=== PATIENT | male | born 1950 | race Caucasian/White ===

== ENCOUNTER 2017-06-29 16:18 | Emergency (ER) | payer MEDICARE, OTHER, BC ==
--- NOTE | 2017-06-29 18:25 | EDM.PDOC ---
ED HPI GENERAL MEDICAL PROBLEM - General Chief Complaint: Gastrointestinal Problem Stated Complaint: ILLNESS Time Seen by Provider: 06/29/17 18:00 Source of Information: Reports: Patient History Limitations: Reports: No Limitations - History of Present Illness INITIAL COMMENTS - FREE TEXT/NARRATIVE: 67-year-old male has had diarrhea intermittently for the last 4 days, which followed 12 hours of nausea and vomiting after recent medication. He had emesis late Thursday night, felt much better over the next 2 days but then redeveloped diarrhea after a large meal. He is having no significant pain, no fever, he has not seen any blood in the diarrhea or emesis, and he has not had diarrhea since 10 this morning which was 8 hours ago. He is taking fluids well. He called the nurse hotline to discuss his intermittent diarrhea for dietary suggestions and they recommended he come to the emergency room. Severity: Moderate Associated Symptoms: Reports: Malaise, Nausea/Vomiting. Denies: Fever/Chills, Headaches, Shortness of Breath - Related Data Allergies Allergy/AdvReac Type Severity Reaction Status Date / Time No Known Allergies Allergy Verified 06/29/17 17:32 Home Meds: Home Meds Aspirin [Estefania Chewable Aspirin] 162 mg PO DAILY 06/29/17 [History] Omeprazole 40 mg PO DAILY 06/29/17 [History] Past Medical History Musculoskeletal History: Reports: Fracture Oncologic (Cancer) History: Reports: Basal Cell Carcinoma - Infectious Disease History Infectious Disease History: Reports: Chicken Pox, Measles, Mumps Social & Family History - Tobacco Use Smoking Status *Q: Never Smoker - Caffeine Use Caffeine Use: Reports: Coffee - Recreational Drug Use Recreational Drug Use: No ED ROS GENERAL - Review of Systems Review Of Systems: See Below Constitutional: Reports: Malaise. Denies: Fever, Chills HEENT: Reports: No Symptoms Respiratory: Denies: Shortness of Breath Cardiovascular: Denies: Chest Pain GI/Abdominal: Reports: Diarrhea, Nausea, Vomiting. Denies: Abdominal Pain : Reports: No Symptoms Skin: Reports: No Symptoms Neurological: Reports: No Symptoms Psychiatric: Reports: No Symptoms ED EXAM, GI/ABD - Physical Exam Exam: See Below Exam Limited By: No Limitations General Appearance: Alert, No Apparent Distress Eyes: Bilateral: Normal Appearance (Well-hydrated, no jaundice) Throat/Mouth: Normal Inspection (Normal mucosal hydration) Head: Atraumatic Respiratory/Chest: No Respiratory Distress Cardiovascular: Regular Rate, Rhythm. No: Tachycardia GI/Abdominal Exam: Normal Bowel Sounds, Soft, Non-Tender Neurological: Alert, Oriented Psychiatric: Normal Affect, Normal Mood Skin Exam: Warm, Dry Course - Vital Signs Last Recorded V/S: Last Vital Signs Temp 97.4 F 06/29/17 17:59 Pulse 66 06/29/17 17:59 Resp 16 06/29/17 17:59 BP 133/78 06/29/17 17:59 Pulse Ox 96 06/29/17 17:59 - Re-Assessments/Exams Free Text/Narrative Re-Assessment/Exam: 06/29/17 18:23 Patient also has not been on any recent antibiotics. He was exposed to illness with [place] airport [place] and a tight crowd. He looks very comfortable I think he is improving, I encouraged a BRAT diet, probiotics and to advance diet as tolerated. He is to return in the next 24-48 hours if worsening. Departure - Departure Time of Disposition: 18:38 Disposition: Home, Self-Care 01 Condition: Good Clinical Impression: Gastroenteritis - Discharge Information Instructions: Viral Gastroenteritis, Adult, [id number] Referrals: PCP,None [Primary Care Provider] - Forms: ED Department Discharge Care Plan Goals: Advance diet slowly concentrating on fluids and mild foods such as bananas, rice , applesauce and dry toast. Probiotics may help. Increase activity as tolerated , and return to the emergency room or your regular doctor if you're worsening such as fever, increased pain, or blood in the diarrhea.
== END 2017-06-29 18:38 | disposition home or self-care (01) ==
LOC: JP.ED 16:18
DX: K52.9 Noninfective gastroenteritis and colitis, unspecified (principal); Z79.82 Long term (current) use of aspirin; Z79.899 Other long term (current) drug therapy
CPT/HCPCS: 99283; 99284

== ENCOUNTER 2020-11-09 08:48 | Emergency (ER) | payer MEDICARE, BC ==
--- NOTE | 2020-11-09 09:59 | EDM.PDOC ---
ED HPI GENERAL MEDICAL PROBLEM - General Chief Complaint: Lower Extremity Injury/Pain Stated Complaint: INFECT BIG TOE? Time Seen by Provider: 11/09/20 09:35 Source of Information: Reports: Patient History Limitations: Reports: No Limitations - History of Present Illness INITIAL COMMENTS - FREE TEXT/NARRATIVE: 70-year-old male underwent a four-vessel coronary artery bypass grafting a month ago, had been doing well but over the past 24 to 48 hours has developed pain and redness around the MP joint of his left foot big toe. He is having difficulty bearing weight because of the pain. No fevers or chills, no recent trauma, no peripheral edema. He has no history of gout. His diet has changed a lot however in the last few weeks because of the surgery. Onset: Gradual Duration: Day(s): (2 days of symptoms, worse today) Location: Reports: Lower Extremity, Left Improves with: Reports: Rest Worsens with: Reports: Other (Weightbearing is difficult), Movement Toe-Hailux Pain Score (Numeric/FACES): 1 - Related Data Allergies Allergy/AdvReac Type Severity Reaction Status Date / Time No Known Allergies Allergy Verified 11/09/20 09:34 Home Meds: Home Meds Omeprazole 40 mg PO DAILY 06/29/17 [History] Albuterol Sulfate [Proair Respiclick] 90 mcg IH ASDIRECTED PRN 09/07/20 [History] Rosuvastatin Calcium 5 mg PO DAILY 09/07/20 [History] Sertraline HCl 25 mg PO DAILY 09/07/20 [History] Aspirin 325 mg PO DAILY 09/10/20 [History] Metoprolol Tartrate [Lopressor] 25 mg PO BID 11/09/20 [History] lisinopriL [Lisinopril] 5 mg PO DAILY 11/09/20 [History] Past Medical History Cardiovascular History: Reports: CAD, High Cholesterol, Hypertension Musculoskeletal History: Reports: Fracture Oncologic (Cancer) History: Reports: Basal Cell Carcinoma - Infectious Disease History Infectious Disease History: Reports: Chicken Pox, Measles, Mumps - Past Surgical History Cardiovascular Surgical History: Reports: Coronary Artery Bypass Social & Family History - Tobacco Use Tobacco Use Status *Q: Never Tobacco User - Caffeine Use Caffeine Use: Reports: Coffee - Recreational Drug Use Recreational Drug Use: No Review of Systems - Review of Systems Review Of Systems: See Below Constitutional: Denies: Fever Respiratory: Reports: No Symptoms Cardiovascular: Reports: No Symptoms Genitourinary: Reports: No Symptoms Musculoskeletal: Reports: Foot Pain Skin: Reports: Other (Incisions from his surgery are healing nicely) Neurological: Denies: Headache ED EXAM, GENERAL - Physical Exam Exam: See Below Exam Limited By: No Limitations General Appearance: Alert, No Apparent Distress Head: Atraumatic Respiratory/Chest: No Respiratory Distress, Lungs Clear Cardiovascular: Regular Rate, Rhythm Extremities: Other (Exam is otherwise limited to the left foot. There is redness, slight warmth, and intense pain with any palpation or passive range of motion of the MP joint left foot) Neurological: Alert, Oriented Psychiatric: Normal Affect, Normal Mood Skin Exam: Warm, Dry, Erythema (Patient has erythema around the MP joint of the left foot) Course - Vital Signs Last Recorded V/S: Last Vital Signs Temp 97.6 F 11/09/20 09:33 Pulse 80 11/09/20 09:33 Resp 18 11/09/20 09:33 BP 114/68 11/09/20 09:33 Pulse Ox 96 11/09/20 09:33 - Re-Assessments/Exams Free Text/Narrative Re-Assessment/Exam: 11/09/20 09:56 This presentation is very typical of gout of the left first MP joint. Patient will be placed on 60 mg of prednisone daily for the next 3 to 5 days. He is already on omeprazole to protect the stomach, he can also add 2 or 3 doses of ibuprofen daily. Increase activity as tolerated and consider rechecking in 3 to 4 days if not significant improvement. Departure - Departure Time of Disposition: 10:34 Disposition: Home, Self-Care 01 Clinical Impression: Gout of big toe - Discharge Information Instructions: Acute Pain, Adult Referrals: Mack Henderson NP [Primary Care Provider] - Forms: ED Department Discharge Care Plan Goals: Take 6 pills of prednisone all at once with your first food of the day for the next 3 to 5 days. You can also take 2 or 3 doses of ibuprofen during the day as well. Increase activity as tolerated, and return in 2 to 3 days if not improving satisfactorily. Return anytime if worsening such as increased pain through more of the foot or leg, fever, or other concerns. Sepsis Event Note (ED) - Evaluation Sepsis Screening Result: No Definite Risk - Focused Exam Vital Signs: Vital Signs Temp Pulse Resp BP Pulse Ox 07/09/21 09:33 97.6 F 80 18 114/68 96 11/09/20 09:12 97.6 F 80 18 114/68 96
== END 2020-11-09 10:34 | disposition home or self-care (01) ==
LOC: JP.ED 08:48
DX: M10.9 Gout, unspecified (principal); I25.10 Atherosclerotic heart disease of native coronary artery without angina pectoris; E78.00 Pure hypercholesterolemia, unspecified; I10 Essential (primary) hypertension; Z79.82 Long term (current) use of aspirin; Z79.899 Other long term (current) drug therapy
CPT/HCPCS: 99283

== ENCOUNTER 2021-11-21 07:45 | Day surgery (SDC) | payer MEDICARE, BC ==
[2021-11-21] MEDS ORDERED: Propofol 200 MG/20 ML SDV ONE (08:18)
[2021-11-21] MEDS ORDERED: Midazolam 1 MG/ML 2 ML SDV ONE (08:18)
[2021-11-21] MEDS ORDERED: fentaNYL 100 MCG/2 ML SDV ONE (08:18)
[2021-11-21] MEDS ORDERED: Lactated Ringers 1,000 ML IV SCH (08:30)
== END 2021-11-21 11:09 | disposition home or self-care (01) ==
LOC: JP.SDS 07:45
PROVIDERS: ATTEND Family Medicine
DX: Z12.11 Encounter for screening for malignant neoplasm of colon (principal); D12.8 Benign neoplasm of rectum; I25.10 Atherosclerotic heart disease of native coronary artery without angina pectoris; E78.5 Hyperlipidemia, unspecified; E66.9 Obesity, unspecified; K21.9 Gastro-esophageal reflux disease without esophagitis; Z68.30 Body mass index [BMI] 30.0-30.9, adult; Z95.1 Presence of aortocoronary bypass graft; Z79.83 Long term (current) use of bisphosphonates; Z79.899 Other long term (current) drug therapy; Z20.822 Contact with and (suspected) exposure to COVID-19
CPT/HCPCS: 45380; J2250; J2704; J3010; J7120; 88305